=== PATIENT | male | born 1985 | race Two or more races ===

== ENCOUNTER 2022-04-11 21:06 | Emergency (ER) | payer OTHER ==
[~2022-04-11] VITALS: Ht 162.6 cm; Wt 68.0 kg
[2022-04-11 21:49] VITALS: BP 130/70
[2022-04-11] MEDS ORDERED: IBUPROFEN 600 MG TABLET ONE (23:04)
[2022-04-11] MEDS ORDERED: IBUPROFEN 600 MG TABLET PO ONE (23:30)
[2022-04-12] MEDS ORDERED: IBUPROFEN 600 MG TABLET ONE (00:13)
== END 2022-04-12 03:26 | disposition home or self-care (01) ==
LOC: ER 21:13
DX: M54.9 Dorsalgia, unspecified (principal); Z72.820 Sleep deprivation; Z59.00 Homelessness unspecified
CPT/HCPCS: 82962-TC

== ENCOUNTER 2022-04-12 13:19 | Emergency (ER) | payer OTHER ==
[~2022-04-12] VITALS: Ht 167.6 cm; Wt 68.5 kg
[2022-04-12 13:54] VITALS: BP 112/76
[2022-04-12] MEDS ORDERED: clonazePAM 1 MG TABLET PO ONE (16:00)
--- NOTE | 2022-04-12 16:00 | NUR ---
Pt given list of resources for Re-hab. States "I was in [place] before- Will go there again"
[2022-04-12] MEDS ORDERED: clonazePAM 1 MG TABLET ONE (16:31)
--- NOTE | 2022-04-12 16:34 | NUR ---
Patient discharged to home in stable condition. Written and verbal after care instructions given. Patient verbalizes understanding of instruction.
== END 2022-04-12 16:35 | disposition home or self-care (01) ==
LOC: ER 13:23
DX: F41.9 Anxiety disorder, unspecified (principal); F13.20 Sedative, hypnotic or anxiolytic dependence, uncomplicated; Z79.891 Long term (current) use of opiate analgesic